=== PATIENT | female | born 1965 | race Hispanic/Latino ===

== ENCOUNTER 2017-08-11 18:52 | Emergency (ER) | payer OTHER ==
[~2017-08-11] VITALS: Ht 162.6 cm; Wt 77.1 kg
[~2017-08-11 18:52] MED LIST: ACIPHEX 20MG20 MG PO; COLACE100 M1 PO; Ecotrin PO; FLUOXETINE10 MG PO; NITROSTAT 0.4MG1 BO2 SL; OMEPRAZOLE40 M1 PO; PHENTERMINE HCL15 M1 PO; TOPIRAMATE25 M2 PO; Transderm Nitro 10MG (0.4 MG/Hr) Patch TOP; [UNRECOGNIZED DRUG - OTHER] TOP
--- NOTE | 2017-08-11 20:27 | ED CARDIAC/CP/PALPITATIONS ---
History of Present Illness General Chief Complaint: Chest Pain Stated Complaint: CP, HEADACHE, LEFT ARM NUMBNES Source: patient, old records Exam Limitations: no limitations Vital Signs & Intake/Output Vital Signs & Intake/Output Vital Signs Date Time Temp Pulse Resp B/P B/P Pulse O2 O2 Flow FiO2 Mean Ox Delivery Rate 08/12 2055 98.2 84 20 136/64 100 Room Air 08/11 1905 98.3 77 16 136/85 98 Room Air Allergies Coded Allergies: NO KNOWN ALLERGIES (04/07/14) Reconcile Medications Docusate Sodium (Colace) 100 MG CAPSULE 1 CAP PO BID CONSTIPATION [Ecotrin] 81 MG PO DAILY Fluoxetine Hydrochloride (Fluoxetine) 10 MG CAP 1 CAP PO DAILY MENTAL HEALTH (Reported) Nitroglycerin (Nitrostat 0.4MG S\L Tab) 0.3 MG TAB.SUBL 0.4 MG SL Q 5 MINUTES X 3 DOSE PRN CHEST PAIN Omeprazole 40 MG CAPSULE.DR 1 CAP PO DAILY GASTRITIS Phentermine HCl 15 MG CAPSULE 1 CAP PO DAILY WEIGHT LOSS (Reported) Rabeprazole Sodium (Aciphex 20MG) 20 MG TABLET.DR 1 TAB PO DAILY AC GI ( Reported) Topiramate 25 MG TABLET 1 TAB PO BID WEIGHT LOSS (Reported) [Transderm Nitro 5MG (0.2MG/Hr)] 0.2 MG TOP DAILY Triage Note: PT STATES SHE IS HAVING PAIN IN HER HEAD AND BILAT UPPER EXT. PAIN INCREASES WITH MOVEMENT. PT STATES HER BENDER STARTED LAST WEEK AND YESTERDAY THE ARM AND CHEST PAIN BEGAN. Triage Nurses Notes Reviewed? yes HPI: Patient present with 2 complaints. First complaint is a headache that she has had for the past 8 days. The pain is in the back of her head and then radiates around to the front. The pain is throbbing in nature. The pain waxes and wanes in intensity but never goes away entirely. The pain is helped with Tylenol. Currently the pain is 8 out of 10. She denies any photophobia. There is no nausea or vomiting. Her other complaint is left-sided chest pain radiating to the left arm that is constant since yesterday. The pain also waxes and wanes in intensity. Never goes away entirely. Pain is also decreases when she takes Tylenol. There is no weakness or numbness. There is no shortness of breath. No dyspnea on exertion. There is no orthopnea. The pain is an aching pain. Past History Travel History Traveled to [place] past 21 day No Medical History Any Pertinent Medical History? see below for history Neurological: NONE EENT: NONE Cardiovascular: NONE Respiratory: NONE Gastrointestinal: GERD Hepatic: NONE Renal: NONE Musculoskeletal: NONE Psychiatric: depression Blood Disorders: NONE Cancer(s): NONE SERVICE DELIVERY SUPERVISOR/Reproductive: NONE History of MRSA: No History of VRE: No History of CDIFF: No Surgical History Surgical History: hysterectomy Psychosocial History Who do you live with Patient/Self Services at Home None What is your primary language Comoran Tobacco Use: Never used ETOH Use: denies use Illicit Drug Use: denies illicit drug use Family History Family History, If Any: FATHER Relation not specified for: FH: CAD (coronary artery disease) Hx Contributory? No Review of Systems Review of Systems Constitutional: Reports: no symptoms. EENTM: Reports: no symptoms. Respiratory: Reports: no symptoms. Cardiovascular: Reports: see HPI, chest pain. GI: Reports: no symptoms. Genitourinary: Reports: no symptoms. Musculoskeletal: Reports: no symptoms. Skin: Reports: no symptoms. Neurological/Psychological: Reports: see HPI, headache. Hematologic/Endocrine: Reports: no symptoms. Immunologic/Allergic: Reports: no symptoms. All Other Systems: Reviewed and Negative Physical Exam Physical Exam General Appearance: well developed/nourished, alert, awake, anxious, moderate distress Head: atraumatic, normal appearance Eyes: Bilateral: PERRL, EOMI. Ears, Nose, Throat: normal pharynx, normal ENT inspection, hearing grossly normal Neck: normal inspection, supple, full range of motion, no midline tenderness, MUSCLE SPASM Respiratory: normal breath sounds, no respiratory distress, lungs clear, PAIN ON PALPATION Cardiovascular: regular rate/rhythm, normal peripheral pulses Gastrointestinal: normal bowel sounds, soft, non-tender, no organomegaly Back: normal inspection, normal range of motion Extremities: normal inspection, normal capillary refill, normal range of motion, no edema Neurologic/Psych: no motor/sensory deficits, awake, alert, oriented x 3, normal mood/affect Skin: intact, normal color, warm/dry Lymphatic: no anterior cervical noemi Core Measures ACS in differential dx? Yes CVA/TIA Diagnosis No Sepsis Present: No Sepsis Focused Exam Completed? No Progress Differential Diagnosis: AMI, cholecystitis, intracranial hemorrhage, musculoskeletal pain, myocarditis, pericarditis, pneumonia, pneumothorax, pulmonary embolism Plan of Care: Orders Procedure Date/time Status TROPONIN LEVEL 08/11 2025 Complete COMPREHENSIVE METABOLIC PANEL 08/11 2025 Complete CBC WITHOUT DIFFERENTIAL 08/11 2025 Complete EKG 08/11 1852 Active Laboratory Tests 08/11/172103: Anion Gap 12, Estimated GFR > 60, BUN/Creatinine Ratio 17.5, Glucose 96, Calcium 9.0, Total Bilirubin 0.4, AST 39 H, ALT 41, Alkaline Phosphatase 95, Troponin I < 0.01, Total Protein 7.5, Albumin 4.1, Globulin 3.4, Albumin/Globulin Ratio 1.2 , CBC w Diff NO MAN DIFF REQ, RBC 4.95, MCV 83.8, MCH 27.4, MCHC 32.7 L, RDW 14.4, MPV 7.8, Gran % 51.7, Lymphocytes % 39.7, Monocytes % 5.3, Eosinophils % 2.7, Basophils % 0.6, Absolute Granulocytes 4.6, Absolute Lymphocytes 3.5 H, Absolute Monocytes 0.5, Absolute Eosinophils 0.2, Absolute Basophils 0.1 Diagnostic Imaging: Viewed by Me: Radiology Read, CT Scan. Discussed w/RAD: Radiology Read, CT Scan. Radiology Impression: PATIENT: ROB CHOWDARY PRESENT AGE: 52 PATIENT ACCOUNT NO: [id number] : 63 LOCATION: [facility] ORDERING PHYSICIAN: Chaim Macdonald MD SERVICE DATE: 08/11/17 EXAM TYPE: CAT - CT HEAD WO IV CONTRAST EXAMINATION: CT HEAD WITHOUT CONTRAST CLINICAL INFORMATION: Headache. COMPARISON: None TECHNIQUE: Contiguous axial imaging was performed from the skull base to vertex without intravenous administration of contrast. DLP: 601.84 mGy-cm FINDINGS: There is no evidence of acute intracranial hemorrhage or territorial infarction. No abnormal mass effect or midline shift is seen. Keith to white matter differentiation is well preserved. No extra-axial fluid collections are identified. The ventricles are normal in size. There is a nonspecific 5 mm cortically-based calcification along the medial right frontal lobe near the vertex. The osseous structures and soft tissues are normal. The mastoid air cells and visualized portions of the paranasal sinuses are well aerated. IMPRESSION: No acute intracranial pathology. DICTATED BY: Chaim Rasmussen MD DATE/TIME DICTATED:08/11/172113 RIGHT OF WAY CLEARER:NUVIA DATE/TIME TRANSCRIBED:08/11/172113 CONFIDENTIAL, DO NOT COPY WITHOUT APPROPRIATE AUTHORIZATION. <Electronically signed in Other Vendor System> SIGNED BY: Chaim Rasmussen MD 08/11/172119 CXR Impression: PATIENT: ROB CHOWDARY PRESENT AGE: 52 PATIENT ACCOUNT NO: [id number] : 63 LOCATION: [facility] ORDERING PHYSICIAN: Chaim Macdonald MD SERVICE DATE: 08/11/17-2025 EXAM TYPE: RAD - XRY-CHEST XRAY, TWO VIEWS EXAMINATION: XR CHEST CLINICAL INFORMATION: Chest pain COMPARISON: Chest x-ray of 04/06/2014. TECHNIQUE: 2 views of the chest were obtained. FINDINGS: The patient is rotated to the right. The lungs are hypoexpanded with mild bronchovascular crowding. No focal consolidation, changes of overt pulmonary edema or pleural effusions. No pneumothorax. The cardiomediastinal silhouette is stable and normal. Mild degenerative changes are noted at multiple levels in the visualized spine. No acute osseous abnormality. IMPRESSION: Mildly hypoexpanded lungs with bronchovascular crowding. No radiographic evidence of pulmonary edema or pneumonia. DICTATED BY: Rebecca Chatman MD DATE/TIME DICTATED:08/11/172117 RIGHT OF [address] CLEARER:NUVIA DATE/TIME TRANSCRIBED:08/11/172117 CONFIDENTIAL, DO NOT COPY WITHOUT APPROPRIATE AUTHORIZATION. <Electronically signed in Other Vendor System> SIGNED BY: Rebecca Chatman MD 08/11/172121 Initial ED EKG: NSR, no ST T wave changes Prior EKG: unchanged Comments: Patient is feeling much better after Flexeril and Toradol. Departure Departure Disposition: HOME OR SELF CARE Condition: Stable Clinical Impression Primary Impression: Tension headache Secondary Impressions: Chest pain, unspecified Referrals: Amanda CORTES,Claudio Vasquez (PCP/Family) Additional Instructions: USE MOIST HEAT TAKE FLEXERIL AND MOTRIN NEEDED RETURN IF SYMPOTOMS WORSEN OR FOR ANY CONCERNS Departure Forms: Customer Survey General Discharge Information Prescriptions: Current Visit Scripts Cyclobenzaprine HCl 1 TAB PO Q8P #20 TAB Ibuprofen 1 TAB PO TID PRN PAIN #20 TAB with food Critical Care Note Critical Care Note Critical Care Time: non-applicable
[2017-08-11 21:13] LABS: ABSOLUTE BASOPHIL COUNT 0.1 /CUMM (0.0-0.2); ABSOLUTE EOSINOPHIL COUNT 0.2 /CUMM (0.0-0.7); ABSOLUTE GRANULOCYTE CT 4.6 /CUMM (1.4-6.5); ABSOLUTE LYMPH COUNT 3.5 /CUMM (1.2-3.4); ABSOLUTE MONOCYTE COUNT 0.5 /CUMM (0.10-0.60); BASOPHIL % 0.6 % (0.0-2.0); EOSINOPHIL % 2.7 % (0-5); GRANULOCYTE % 51.7 % (42.2-75.2); HEMATOCRIT 41.5 % (37-47); MEAN CORPUSCULAR HGB 27.4 PG (27.0-31.0); MEAN CORPUSCULAR HGB CONC 32.7 G/DL (33.0-37.0); MEAN CORPUSCULAR VOLUME 83.8 FL (81.0-99.0); MEAN PLATELET VOLUME 7.8 FL (7.4-10.4); PLATELET COUNT 383 /CUMM (130-400); RBC DISTRIBUTION WIDTH 14.4 % (11.5-14.5); RED BLOOD CELL CT 4.95 /CUMM (4.20-5.40); WHITE BLOOD CELL COUNT 8.9 /CUMM (4.8-10.8)
--- NOTE | 2017-08-11 21:20 | CT SCAN REPORT ---
EXAMINATION: CT HEAD WITHOUT CONTRAST CLINICAL INFORMATION: Headache. COMPARISON: None TECHNIQUE: Contiguous axial imaging was performed from the skull base to vertex without intravenous administration of contrast. DLP: 601.84 mGy-cm FINDINGS: There is no evidence of acute intracranial hemorrhage or territorial infarction. No abnormal mass effect or midline shift is seen. Keith to white matter differentiation is well preserved. No extra-axial fluid collections are identified. The ventricles are normal in size. There is a nonspecific 5 mm cortically-based calcification along the medial right frontal lobe near the vertex. The osseous structures and soft tissues are normal. The mastoid air cells and visualized portions of the paranasal sinuses are well aerated. IMPRESSION: No acute intracranial pathology.
--- NOTE | 2017-08-11 21:22 | RADIOLOGY REPORT ---
EXAMINATION: XR CHEST CLINICAL INFORMATION: Chest pain COMPARISON: Chest x-ray of 04/06/2014. TECHNIQUE: 2 views of the chest were obtained. FINDINGS: The patient is rotated to the right. The lungs are hypoexpanded with mild bronchovascular crowding. No focal consolidation, changes of overt pulmonary edema or pleural effusions. No pneumothorax. The cardiomediastinal silhouette is stable and normal. Mild degenerative changes are noted at multiple levels in the visualized spine. No acute osseous abnormality. IMPRESSION: Mildly hypoexpanded lungs with bronchovascular crowding. No radiographic evidence of pulmonary edema or pneumonia.
[2017-08-11] MEDS ORDERED: CYCLOBENZAPRINE10 M1 PO (21:53)
[2017-08-11] MEDS ORDERED: IBUPROFEN600 M1 PO (21:53)
[2017-08-11 22:01] VITALS: BP 128/74
== END 2017-08-11 22:13 ==
LOC: ERH 18:52
PROVIDERS: Emergency Medicine
DX: G44.209 Tension-type headache, unspecified, not intractable (principal); R07.9 Chest pain, unspecified
CPT/HCPCS: 71046; 93005; 93010; 96372; J1885